=== PATIENT | female | born 1975 | race Caucasian/White ===

== ENCOUNTER 2017-12-09 05:22 | Day surgery (SDC) | payer OTHER, BC ==
[2017-12-04 14:38] VITALS: BMI 38.9
--- NOTE | 2017-12-09 11:34 | HP ---
History & Physical Update - History History: No Change - Physical Physical: No Change - Assessment Assessment: No Change - Plan Plan: No Change (No change in HP)
--- NOTE | 2017-12-09 11:37 | OP ---
Operative Note - Note: Operative Date: 12/09/17 Pre-Operative Diagnosis: submucosal myoma. menorrhagia Operation: Hysteroscopic Myomectomy. SUction DC Post-Operative Diagnosis: Same as Pre-op Surgeon: Margaret Isbell Anesthesia: General Operative Report Dictated: Yes
[2017-12-09] MEDS ORDERED: PROPOFOL 20 ML ONE ×3 (11:38)
[2017-12-09] MEDS ORDERED: KETOROLAC TROMETHAMINE 30 MG/1 ML VIAL ONE (11:55)
[2017-12-09] MEDS ORDERED: ONDANSETRON 4 MG/2 ML VIAL IVPUSH PRN (12:41)
[2017-12-09] MEDS ORDERED: LACTATED RINGERS SOLUTION 1,000 ML IV SCH (12:45)
[2017-12-09] MEDS ORDERED: ACETAMINOPHEN 325 MG TABLET (FP) PO PRN (13:23)
[2017-12-09] MEDS ORDERED: IBUPROFEN 400 MG TABLET (FP) PO PRN (13:24)
[2017-12-09] MEDS ORDERED: oxyCODONE HCL 5 MG TABLET PO PRN (13:25)
[2017-12-09 15:50] VITALS: BP 134/77; PULSE 67; TEMP 98.1
--- NOTE | 2017-12-10 17:59 | PATH ---
Surgical Pathology Report Patient Name: SOPHIE MICHAUD [facility]. Rec. #: [id number] /Age/Gender: 1975 (Age: 42) / F Account: [id number] Location: [facility] SURGICAL Taken: 12/09/2017 Received: 12/09/2017 Reported: 12/10/2017 Physicians: Margaret Isbell M.D. Specimen(s) Received ENDOMETRIAL CURETTINGS Clinical History Endometrial polyps Final Diagnosis ENDOMETRIAL CURETTINGS, HYSTEROSCOPIC MYOMECTOMY AND SUCTION DILATION AND CURETTAGE:POLYPOID FRAGMENTS OF SECRETORY ENDOMETRIUM, FRAGMENTS OF SMOOTH MUSCLE CONSISTENT WITH SUBMUCOSAL LEIOMYOMA, AND SCANT BENIGN EXOCERVICAL TISSUE. Electronically Signed Jenifer Wynn M.D. Gross Description Received in formalin labeled "endometrial curettings," is a 4.5 x 4.0 x 0.5 cm aggregate of stoddard-red soft tissue fragments. The formalin is filtered and the specimen is entirely submitted in 4 cassettes. /12/09/2017 saudi/12/09/2017
== END 2017-12-09 15:00 | disposition home or self-care (01) ==
LOC: JASU-SURG 05:22
PROVIDERS: ATTEND Obstetrics & Gynecology
PROC: 0UB98ZZ Excision of Uterus, Via Natural or Artificial Opening Endoscopic (ICD-10-PCS; principal; 2017-12-09 11:00)
PROC: 0UDB7ZX Extraction of Endometrium, Via Natural or Artificial Opening, Diagnostic (ICD-10-PCS; 2017-12-09 11:00)
PROC: 0UJD8ZZ Inspection of Uterus and Cervix, Via Natural or Artificial Opening Endoscopic (ICD-10-PCS; 2017-12-09 11:00)
DX: N92.0 Excessive and frequent menstruation with regular cycle (principal); D25.0 Submucous leiomyoma of uterus
CPT/HCPCS: 36415; 84703; 86850; 86900; 86901; 88305-TC; 94760

== ENCOUNTER 2018-02-19 07:39 | Day surgery (SDC) | payer OTHER, BC ==
[2018-02-17 11:31] VITALS: BMI 38.9
[2018-02-19] MEDS ORDERED: MIDAZOLAM HCL 2 MG/2 ML SINGLE DOSE VIAL ONE ×2 (09:29)
[2018-02-19] MEDS ORDERED: ACETAMINOPHEN 1000 MG/100 ML VIAL (NON FORMULARY) IVPB ONE (09:29)
[2018-02-19] MEDS ORDERED: DEXTROSE 5%-0.45% SALINE 1,000 ML IV SCH (09:30)
[2018-02-19] MEDS ORDERED: IBUPROFEN 800 MG/8 ML IJ IVPB SCH (09:30)
[2018-02-19] MEDS ORDERED: ceFAZolin SODIUM 1 GM VIAL ONE (09:46)
[2018-02-19] MEDS ORDERED: ceFAZolin SODIUM 1 GM VIAL IVPB ONE (09:50)
[2018-02-19] MEDS ORDERED: KETOROLAC TROMETHAMINE 30 MG/1 ML VIAL ONE (09:58)
[2018-02-19] MEDS ORDERED: VASOPRESSIN 20 UNITS/ML VIAL IV ONE (09:58)
[2018-02-19] MEDS ORDERED: ONDANSETRON 4 MG/2 ML VIAL IVPUSH PRN (10:33)
[2018-02-19] MEDS ORDERED: oxyCODONE HCL 5 MG TABLET PO PRN (10:33)
[2018-02-19] MEDS ORDERED: PROMETHAZINE HCL 25 MG/1 ML VIAL IVPUSH PRN (10:33)
[2018-02-19] MEDS ORDERED: LACTATED RINGERS SOLUTION 1,000 ML IV SCH (10:45)
[2018-02-19 12:04] VITALS: PULSE 75; TEMP 97.5
[2018-02-19 13:58] VITALS: BP 126/68
--- NOTE | 2018-04-04 10:14 | OP ---
DATE OF OPERATION: 02/19/2018 SURGEON: Konrad Castro MD PREOPERATIVE DIAGNOSIS: Stress urinary incontinence, hypermobile urethra. POSTOPERATIVE DIAGNOSIS: Stress urinary incontinence, hypermobile urethra. PROCEDURE: Cystoscopy, suburethral sling placement. ANESTHESIA: General. ANESTHESIOLOGIST: Rubens Euceda MD ESTIMATED BLOOD LOSS: 25 mL. FINDINGS: Hypermobile urethra. DRAINS: Kirk catheter. PREOPERATIVE INDICATIONS: The patient is 42-year-old female with stress urinary incontinence both by history and exam. 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 She comes to the OR today for repair. OPERATION: The patient was brought to the OR, placed on the table in the supine position, given general anesthesia and IV antibiotics, and placed in the modified lithotomy position. The groin was prepped and draped sterilely. Incision was made along the mid portion of the urethra, and the vaginal mucosa was sharply dissected off the periurethral tissues in a lateral fashion. Bladder was emptied under suction. The Altis sling was placed, a mini-sling, using the trocars. On the right side, the trocar was passed through the incision under fingertip control towards the obturator canal. No buttonholing of the vaginal mucosa was seen. This was done on the left side, as well, with a similar outcome. Cystoscopy was then performed, which revealed no injuries to the bladder. UOs both had clear efflux. Otherwise, the cystoscopy was unremarkable. The sling was then tightened appropriately to lie flat with no tension along the mid portion of the urethra. The excess tightening suture was removed, and the incision was closed with 2-0 Vicryl suture. A Kirk catheter was placed with vaginal packing. The patient was woken up. KONRAD CASTRO M.D. [id number]
== END 2018-02-19 13:00 | disposition home or self-care (01) ==
LOC: JASU-SURG 07:39
PROVIDERS: ATTEND Urology
PROC: 0TSD0ZZ Reposition Urethra, Open Approach (ICD-10-PCS; principal; 2018-02-19 09:00)
DX: N39.3 Stress incontinence (female) (male) (principal); N36.41 Hypermobility of urethra
CPT/HCPCS: 84703; 94760

== ENCOUNTER 2020-12-08 04:37 | Inpatient (IN) | payer BC ==
[2020-12-07 13:59] VITALS: BMI 38.9
[2020-12-08] MEDS ORDERED: LIDOCAINE HCL/PF 2% SDV 5ML VIAL ONE (07:17)
[2020-12-08] MEDS ORDERED: DEXAMETHASONE SOD PHOSPHATE 4 MG/1 ML VIAL ONE (07:17)
[2020-12-08] MEDS ORDERED: PROPOFOL 20 ML ONE (07:17)
[2020-12-08] MEDS ORDERED: ROCURONIUM BROMIDE 50 MG/5 ML SYRINGE ONE (07:17)
[2020-12-08] MEDS ORDERED: KETOROLAC TROMETHAMINE 30 MG/1 ML VIAL ONE (07:17)
[2020-12-08] MEDS ORDERED: SUCCINYLCHOLINE CHLORIDE 200 MG/10 ML SYRINGE ONE (07:18)
[2020-12-08] MEDS ORDERED: BUPIVACAINE LIPOSOME/PF (EXPAREL) 266 MG/20 ML VIAL ONE (07:30)
[2020-12-08] MEDS ORDERED: MIDAZOLAM HCL 2 MG/2 ML SINGLE DOSE VIAL ONE ×2 (07:31)
[2020-12-08] MEDS ORDERED: ceFAZolin 2 GRAM PREMIX BAG IVPB ONE (07:59)
[2020-12-08] MEDS ORDERED: ONDANSETRON 4 MG/2 ML VIAL IVPUSH PRN ×2 (08:02→09:18)
[2020-12-08] MEDS ORDERED: ACETAMINOPHEN 1000 MG/100 ML VIAL (NON FORMULARY) IVPB ONE (08:02)
[2020-12-08] MEDS ORDERED: oxyCODONE HCL 5 MG TABLET PO PRN (08:02)
[2020-12-08] MEDS ORDERED: TRANEXAMIC ACID 1000 MG/10 ML VIAL ONE (08:07)
[2020-12-08] MEDS ORDERED: DOCUSATE SODIUM 100 MG CAPSULE (FP) PO PRN (09:18)
[2020-12-08] MEDS ORDERED: IBUPROFEN 800 MG/8 ML IJ IVPB PRN (09:18)
[2020-12-08] MEDS ORDERED: ACETAMINOPHEN 325 MG TABLET (FP) PO PRN (09:18)
[2020-12-08] MEDS ORDERED: BISACODYL 5 MG TABLET.DR (FP) PO PRN (09:18)
[2020-12-08] MEDS ORDERED: SIMETHICONE 80 MG TAB.CHEW (FP) PO PRN (09:18)
[2020-12-08] MEDS: SODIUM CHLORIDE 1,000 ML IV SCH (11:47)
[2020-12-08] MEDS: LACTATED RINGERS SOLUTION 1,000 ML IV SCH (12:15)
[2020-12-08] MEDS ORDERED: ACETAMINOPHEN 325 MG TABLET (FP) PO SCH (14:00)
[2020-12-08] MEDS: oxyCODONE HCL 5 MG TABLET PO PRN (15:32)
[2020-12-08] MEDS: CEFAZOLIN 1 GM/D5W 1 GM/50 ML BAG IVPB SCH (15:32)
[2020-12-08 20:15] LABS: HEMATOCRIT 33.9 % (32.4-45.2); HEMOGLOBIN 11.1 GM/dL (10.7-15.3); MCH 24.7 pg (25.7-33.7); MCHC 32.8 g/dl (32.0-36.0); MEAN CELL VOLUME 75.4 fl (80-96); MEAN PLT VOLUME 8.4 fl (7.5-11.1); PLATELET COUNT 379 K/MM3 (134-434); RDW 15.2 % (11.6-15.6); WHITE BLOOD COUNT 13.8 K/mm3 (4.0-10.0)
[2020-12-08 20:35] LABS: BLOOD UREA NITROGEN 11.4 mg/dL (7-18); CALCIUM 8.8 mg/dL (8.5-10.1)
[2020-12-08 20:39] LABS: CREATININE 0.7 mg/dL (0.55-1.3)
[2020-12-09] MEDS: CEFAZOLIN 1 GM/D5W 1 GM/50 ML BAG IVPB SCH ×2 (00:38→08:00)
[2020-12-09] MEDS: oxyCODONE HCL 5 MG TABLET PO PRN (00:46)
[2020-12-09] MEDS: LACTATED RINGERS SOLUTION 1,000 ML IV SCH ×2 (01:44→10:05)
[2020-12-09 09:12] LABS: HEMATOCRIT 29.6 % (32.4-45.2); MCH 25.1 pg (25.7-33.7); MCHC 33.7 g/dl (32.0-36.0); MEAN CELL VOLUME 74.4 fl (80-96); MEAN PLT VOLUME 8.4 fl (7.5-11.1); PLATELET COUNT 339 K/MM3 (134-434); RBC 3.98 M/mm3 (3.60-5.2); RDW 14.8 % (11.6-15.6); WHITE BLOOD COUNT 12.2 K/mm3 (4.0-10.0)
[2020-12-09] MEDS ORDERED: ENOXAPARIN NA (PORCINE) 40 MG/0.4 ML DISP.SYRIN SQ SCH (10:00)
[2020-12-09] MEDS: SODIUM CHLORIDE 1,000 ML IV SCH (10:06)
[2020-12-09 10:28] LABS: BLOOD UREA NITROGEN 11.9 mg/dL (7-18)
[2020-12-09 10:29] LABS: CALCIUM 8.5 mg/dL (8.5-10.1)
[2020-12-09 10:31] LABS: CREATININE 0.8 mg/dL (0.55-1.3)
[2020-12-09 14:45] VITALS: BP 132/71; PULSE 92; TEMP 98.9
== END 2020-12-09 16:34 | disposition home or self-care (01) | DRG 743 ==
LOC: J2C 04:37 → EDSTATUS 07:30 → J6S 11:29
PROVIDERS: ADMIT Obstetrics & Gynecology; ATTEND Obstetrics & Gynecology
PROC: 0UB50ZZ Excision of Right Fallopian Tube, Open Approach (ICD-10-PCS; 2020-12-08)
PROC: 0DNW0ZZ Release Peritoneum, Open Approach (ICD-10-PCS; 2020-12-08)
PROC: 0UB90ZZ Excision of Uterus, Open Approach (ICD-10-PCS; principal; 2020-12-08 07:30)
PROC: 0UB20ZZ Excision of Bilateral Ovaries, Open Approach (ICD-10-PCS; 2020-12-08 07:30)
DX: D25.9 Leiomyoma of uterus, unspecified (principal); N83.202 Unspecified ovarian cyst, left side; N83.201 Unspecified ovarian cyst, right side; N70.11 Chronic salpingitis; N73.6 Female pelvic peritoneal adhesions (postinfective)
CPT/HCPCS: 36415; 80048; 81025; 85027; 88302-TC; 88305-TC; 94010; 94760